=== PATIENT | male | born 1965 | race Caucasian/White ===

== ENCOUNTER 2018-12-16 07:24 | Outpatient (CLI) | payer OTHER | END 2018-12-16 07:43 | disposition home or self-care (01) | LOC: LAB 07:24 | DX: D64.89 Other specified anemias (principal); E78.2 Mixed hyperlipidemia; E11.65 Type 2 diabetes mellitus with hyperglycemia; N39.0 Urinary tract infection, site not specified; E55.9 Vitamin D deficiency, unspecified; E03.8 Other specified hypothyroidism ==